=== PATIENT | female | born 1990 | race African-American/Black ===

== ENCOUNTER 2016-09-20 20:24 | Emergency (ER) | payer MEDICAID ==
[2016-09-20 20:25] VITALS: BMI 39.9
[2016-09-20 20:35] VITALS: PULSE 70; TEMP 97.8
[2016-09-20] MEDS ORDERED: SODIUM CHLORIDE 0.9% 10 ML FLUSH FLUSH PRN (20:55)
[2016-09-20] MEDS ORDERED: ACETAMINOPHEN 325 MG/TAB TABLET PO ONE (21:03)
--- NOTE | 2016-09-20 21:03 | EDPRACDOC ---
- General Information Chief Complaint: Abdominal Pain Stated Complaint: ABD PAIN(6 WKS PREG.) Time Seen by Provider: 09/20/16 20:55 Information Source: Patient Mode Of Arrival: Ambulance Home Medications: Home Medications Cyclobenzaprine HCl [Flexeril] 10 mg PO TID 05/31/16 Diazepam [Valium] 5 mg PO TID #15 tablet 05/31/16 Naproxen 500 mg PO .BID W/MEALS 05/31/16 Oxycodone Immediate Release [Oxycodone Immediate Release (OxyIR)] 5 mg PO Q6H PRN #20 tab 05/31/16 Prednisone [Deltasone, Orasone] 20 mg PO BID #20 tab 05/31/16 Cyclobenzaprine HCl [Flexeril] 10 mg PO TID #21 tab 07/18/16 Ketorolac Tromethamine [Toradol] 10 mg PO Q6H PRN #12 tab 07/18/16 Ondansetron HCl [Zofran] 4 mg PO Q8H PRN #15 tab 09/21/16 Allergies/Adverse Reactions: Allergies Allergy/AdvReac Type Severity Reaction Status Date / Time hydrocodone [Hydrocodone] Allergy Unknown Rash-Genera Verified 09/20/16 20:35 lized tramadol Allergy Unknown Rash-Genera Verified 09/20/16 20:35 lized - History of Present Illness Onset: 1200 HPI: Pt co diffuse abd pain since noon today. Denies fever, cough, congestion, n/v, changes in bowel or bladder, vaginal bleeding or discharge, rash. Pt states she is approximately 6 week preg and this feels similar to previous miscarriages. A3, unknown blood type, LMP 08/15/16 but was different than her normal. Pain Location: Reports: Diffuse Pain Context: Reports: Spontaneous Pain Severity: Moderate Pain Quality: Reports: Aching Pain Radiation: Reports: No Radiation Last Menstrual Period: 08/15/16 : Yes : 5 Para: 1 Abortus: 3 Blood Type: Unknown Adult Abdominal History: Denies: Urolithiasis, Bowel Obstruction Female Abdominal History: Denies: UTI, Ectopic, PID, Urolithiasis Modifying Factors: improves with: Nothing Female Associated Signs & Symptoms: Denies: Nausea, Frequency, Vaginal Bleeding , Vomiting, Hematemesis, Anorexia, Diarrhea, Melena, Dysuria, Fever, Urgency, Hematuria, Chills, Vaginal Discharge, Other Oral Intake: Normal Urinary Output: Normal - Treatment Prior to ED Arrival Reported Medications/Treatment EVENTS [facility]IST[facility] EMS Treatment BLS ED Past Medical History - History Reviewed Yes Nurses notes reviewed and agree except as marked - Patient Medical History Neurological History: Denies: Cerebrovascular Accident, Dementia Cardiac History: Denies: Atrial Fibrillation, Hypertension, Congestive Heart Failure, Heart Attack, Hypercholesterolemia Respiratory History: Denies: Asthma, COPD, Emphysema GI/ History: Denies: Urinary Tract Infection, Gastroesophageal Reflux Psychological History: Denies: Depression Systemic History: Denies: Cancer, Diabetes - Social Medical History Smoking Status: Heavy tobacco smoker (5 or more cigarettes/day or daily pipe/ cigar) Social History: Reports: Marijuana Use ETOH: None Substance Abuse: Illicit Drugs EDM Review of Systems - Review of Systems Constitutional: No Symptoms Reported. negative: Fever, Chills, Weakness, Fatigue, Loss of Appetite Ears: No Symptoms Reported. negative: Pain, Hearing Loss, Drainage, Ear Pulling Throat: No Symptoms Reported. negative: Pain, Swelling Nose: No Symptoms Reported. negative: Congestion, Bleeding, Discharge, Injection, Swelling, Deformity, Ecchymosis, Tender, Abrasion, Laceration Mouth: No Symptoms Reported. negative: Pain, Drooling Respiratory: No Symptoms Reported. negative: Cough, Brassy Cough, Barky Cough, Shortness of Breath, Wheezing, Hemoptysis Cardiovascular: No Symptoms Reported. negative: Chest Pain, Palpitations, Syncope, Edema, Orthopnea, PND, Skin Mottling, Cyanosis Gastrointestinal: Pain Genitourinary: Neurological: No Symptoms Reported. negative: Headache, Dizziness, Seizure, Numbness, Weakness, Speech Difficulty, Gait Difficulty Musculoskeletal: No Symptoms Reported. negative: Neck, Chestwall, Ribs, Back, Shoulder, Arm, Elbow, Forearm, Wrist, Hand, Pelvis, Hip, Femur, Knee, Leg, Ankle , Foot Integumentary: No Symptoms Reported. negative: Itching, Rash, Bruising, Wound Allergic/Immunologic: No Symptoms Reported. negative: Hives, Itching Hematologic: No Symptoms Reported. negative: Lymphadenopathy, Easy Bruising, Easy Bleeding Psychiatric: No Symptoms Reported. negative: Anxiety, Depression, Hallucinations, Insomnia, Suicidal - Physical Exam Constitutional: Alert Oriented to: Time, Person, Place Last recorded Vital Signs: Last Vital Signs Temp 97.8 F 09/20/16 20:31 Pulse 70 09/20/16 20:31 Resp 18 09/20/16 20:31 BP 129/82 09/20/16 20:31 Pulse Ox 99 09/20/16 20:31 Oxygen Pulse Oxygen Saturation 99 O2 Device Room Air Oxygen Flow Rate Fraction of Inspired Oxygen ( FIO2) - HEENT Head: Normal ( normocephalic) Eye Exam: Normal (PERRL, EOMI, Sclera white) Neck: Normal (FROM, trachea at midline) - Respiratory/Cardiovascular Respiratory: Normal - CTA (BBS clear to auscultation without adventitious sounds ) Cardiovascular: Normal (RRR without murmur, gallop or rub) - GI Auscultation: Normal (NABS) Palpation: Normal (Soft,No rebound or guarding, non distended) Tenderness: Diffuse, Mild - Bladder: Normal External: Normal Vagina: Discharge Cervix: Normal Adnexa: Left: Tender - Musculoskeletal Back: Normal (Non-Tender) Extremities: Normal (Normal tone, Pulses 2+ No cyanosis or edema, FROM) - Integumentary Skin: Normal, Warm, Dry Lymphatics: Normal (no adenopathy) - Neurologic Memory Impaired: Normal Motor Function: Normal (Normal tone, Pulses 2+ No cyanosis or edema, FROM) Mood Description: Normal Perception: Normal - Differential Diagnosis Gastroenteritis, UTI, Other (threatened AB) - Results 09/20/16 21:45 09/20/16 21:45 WBC 11.4 xk/uL (3.8-10.8) H 09/20/16 21:45 RBC 4.26 xM/uL (4.20-5.40) 09/20/16 21:45 Hgb 12.9 g/dL (12.0-16.0) 09/20/16 21:45 Hct 39.1 % (36-47) 09/20/16 21:45 MCV 92 fL (81-99) 09/20/16 21:45 MCH 30.4 pg (27-32) 09/20/16 21:45 MCHC 33.1 g/dl (33-36) 09/20/16 21:45 RDW 14.0 % (11.5-14.5) 09/20/16 21:45 Plt Count 253 xk/uL (130-400) 09/20/16 21:45 MPV 7.5 fL (7.4-10.4) 09/20/16 21:45 Neut % (Auto) 62.5 % (45-76) 09/20/16 21:45 Lymph % (Auto) 29.2 % (17-44) 09/20/16 21:45 [place] % (Auto) 5.6 % (3-10) 09/20/16 21:45 Eos % (Auto) 2.1 % (0-5) 09/20/16 21:45 Baso % (Auto) 0.6 % (0-2) 09/20/16 21:45 Absolute Neuts (auto) 7.07 xk/uL (1.7-8.2) 09/20/16 21:45 Absolute Lymphs (auto) 3.31 xk/uL (0.65-4.75) 09/20/16 21:45 Sodium 138 mEq/L (137-146) 09/20/16 21:45 Potassium 3.8 mEq/L (3.5-5.1) 09/20/16 21:45 Chloride 104 mEq/L (98-107) 09/20/16 21:45 Carbon Dioxide 27 mMOL/L (22-33) 09/20/16 21:45 Anion Gap 11 mEq/L (8-16) 09/20/16 21:45 BUN 8 MG/DL (7-17) 09/20/16 21:45 Creatinine 0.80 MG/DL (0.52-1.04) 09/20/16 21:45 Estimated GFR (MDRD) > 60 mL/min (>=60) 09/20/16 21:45 Glucose 93 MG/DL (70-99) 09/20/16 21:45 Calculated Osmolality 264 MOs/Kg (270-290) L 09/20/16 21:45 Calcium 9.1 MG/DL (8.4-10.2) 09/20/16 21:45 Total Bilirubin 0.4 MG/DL (0.2-1.3) 09/20/16 21:45 AST 18 IU/L (14-36) 09/20/16 21:45 ALT 31 IU/L (9-52) 09/20/16 21:45 Alkaline Phosphatase 56 IU/L (38-126) 09/20/16 21:45 Total Protein 7.0 G/DL (6.3-8.2) 09/20/16 21:45 Albumin 4.0 G/DL (3.5-5.0) 09/20/16 21:45 Beta HCG, Quant 47012.7 mIU/mL (<5) 09/20/16 21:45 Urine Color Pale yellow 09/20/16 21:00 Urine Clarity Cldy 09/20/16 21:00 Urine pH 6.0 (5.0-8.0) 09/20/16 21:00 Ur Specific [place] 1.010 (1.003-1.035) 09/20/16 21:00 Urine Protein Neg (NEG/TRACE) 09/20/16 21:00 Urine Glucose (UA) Neg (NEGATIVE) 09/20/16 21:00 Urine Ketones Neg (NEGATIVE) 09/20/16 21:00 Urine Occult Blood Neg (NEG/TRACE) 09/20/16 21:00 Urine Nitrite Neg (NEGATIVE) 09/20/16 21:00 Urine Bilirubin Neg (NEGATIVE) 09/20/16 21:00 Urine Urobilinogen <2.0 MG/DL (0-1) 09/20/16 21:00 Ur Leukocyte Esterase Neg (NEGATIVE) 09/20/16 21:00 Urine RBC 0-2 (0-5) 09/20/16 21:00 Ur Epithelial Cells 3+ 09/20/16 21:00 Amorphous Sediment Occ 09/20/16 21:00 Urine Bacteria Few (NEG/FEW) 09/20/16 21:00 Urine Mucus Occ (NEG/OCC) 09/20/16 21:00 Microbiology 09/20/16 21:19 ROSA Preparation - Final Vaginal 09/20/16 21:19 Trichomonas [place] - Final Vaginal Lab Results 09/20/16 09/20/16 09/20/16 21:45 21:45 21:00 WBC 11.4 H RBC 4.26 Hgb 12.9 Hct 39.1 MCV 92 MCH 30.4 MCHC 33.1 RDW 14.0 Plt Count 253 MPV 7.5 Neut % (Auto) 62.5 Lymph % (Auto) 29.2 [place] % (Auto) 5.6 Eos % (Auto) 2.1 Baso % (Auto) 0.6 Absolute Neuts (auto) 7.07 Absolute Lymphs (auto) 3.31 Sodium 138 Potassium 3.8 Chloride 104 Carbon Dioxide 27 Anion Gap 11 BUN 8 Creatinine 0.80 Estimated GFR (MDRD) > 60 Glucose 93 Calculated Osmolality 264 L Calcium 9.1 Total Bilirubin 0.4 AST 18 ALT 31 Alkaline Phosphatase 56 Total Protein 7.0 Albumin 4.0 Beta HCG, Quant 93874.7 Urine Color Pale yellow Urine Clarity Cldy Urine pH 6.0 Ur Specific [place] 1.010 Urine Protein Neg Urine Glucose (UA) Neg Urine Ketones Neg Urine Occult Blood Neg Urine Nitrite Neg Urine Bilirubin Neg Urine Urobilinogen <2.0 Ur Leukocyte Esterase Neg Urine RBC 0-2 Ur Epithelial Cells 3+ Amorphous Sediment Occ Urine Bacteria Few Urine Mucus Occ - Diagnostic Imaging Abdomen Image interpreted by: Radiologist 09/21/16 01:01 IMPRESSION: Single intrauterine gestational sac noted, with a mean sac diameter of 1.3 cm, corresponding to a gestational age of 6 weeks 1 day. This matches the gestational age of 5 weeks 1 day by LMP, reflecting an estimated date of delivery of May 22, 2017. A yolk sac is seen. The embryo is not yet seen at this time, within normal limits. Decision Time to Discharge: 01:01 - Departure Disposition: Home Condition: Good Final Diagnosis: Abdominal pain, IUP (intrauterine ), incidental Instructions: Acute Abdominal Pain (ED), (ED) Education/Counseling Given To: Patient Education/Counseling Given Regarding: Diagnosis, Treatment, Follow Up Referrals: None,No Provider [Primary Care Provider] - One Week Hansel Arevalo MD [Staff Physician] - One Week Prescriptions: Ondansetron HCl [Zofran] 4 mg PO Q8H PRN #15 tab PRN Reason: Nausea/Vomiting Additional Instructions: Tylenol every 4-6 hours as needed for pain. Return to the Emergency Department for increasing or different abdominal pain, vaginal bleeding that soaks two pads per hour for two hours, feeling like you might pass out, or any concerns.
[2016-09-20 21:27] LABS: AMORPHOUS OCC; LEUKOCYTES/URINE NEG (NEGATIVE); NITRITE/URINE NEG (NEGATIVE); RBC/URINE 0-2 (0-5); URINE OCCULT BLOOD NEG (NEG/TRACE)
[2016-09-20 22:07] LABS: AUTOMATED BASOPHIL 0.6 % (0-2); AUTOMATED EOSINOPHIL 2.1 % (0-5); AUTOMATED LYMPH 29.2 % (17-44); AUTOMATED MONOCYTE 5.6 % (3-10); AUTOMATED NEUTROPHIL 62.5 % (45-76); MPV 7.5 fL (7.4-10.4)
[2016-09-20 22:13] LABS: BLOOD UREA NITROGEN 8 MG/DL (7-17); CALCIUM 9.1 MG/DL (8.4-10.2); CALCULATED OSMOLALITY 264 MOs/Kg (270-290); CHLORIDE 104 mEq/L (98-107); GLUCOSE 93 MG/DL (70-99); SODIUM LEVEL 138 mEq/L (137-146)
[2016-09-20 22:29] LABS: QUANTITATIVE SERUM HCG 10807.7 mIU/mL (<5)
[2016-09-20] MEDS ORDERED: ONDANSETRON HCL 4 MG ODT TAB PO ONE (23:07)
--- NOTE | 2016-09-21 01:00 | DIRPT ---
CLINICAL DATA: Acute onset of left adnexal pain. Initial encounter. EXAM: OBSTETRIC <14 WK US AND TRANSVAGINAL OB US TECHNIQUE: Both transabdominal and transvaginal ultrasound examinations were performed for complete evaluation of the gestation as well as the maternal uterus, adnexal regions, and pelvic cul-de-sac. Transvaginal technique was performed to assess early . COMPARISON: None. FINDINGS: Intrauterine gestational sac: Visualized/normal in shape. Yolk sac: Yes Embryo: No Cardiac Activity: N/A MSD: 1.3 cm 6 w 1 d Subchorionic hemorrhage: No subchorionic hemorrhage is noted. Maternal uterus/adnexae: The uterus is unremarkable in appearance. The right ovary measures 3.4 x 2.5 x 2.4 cm, while the left ovary measures 2.2 x 1.7 x 1.7 cm. A small anechoic 1.5 cm focus adjacent to the right ovary likely reflects an exophytic follicle. No suspicious adnexal masses are seen. There is no evidence for ovarian torsion No free fluid is seen within the pelvic cul-de-sac. IMPRESSION: Single intrauterine gestational sac noted, with a mean sac diameter of 1.3 cm, corresponding to a gestational age of 6 weeks 1 day. This matches the gestational age of 5 weeks 1 day by LMP, reflecting an estimated date of delivery of May 22, 2017. A yolk sac is seen. The embryo is not yet seen at this time, within normal limits. Electronically Signed By: Randy Burkett M.D. On: 09/21/2016 00:57
[2016-09-21 01:24] VITALS: BP 124/76
[2016-09-23 18:36] LABS: CHLAMY BY NUCLEIC ACID AMP Negative (Negative)
[2016-09-24 06:38] LABS: GC BY NUCLEIC ACID AMP Negative (Negative)
== END 2016-09-21 01:15 | disposition home or self-care (01) ==
LOC: ED 20:24
DX: O26.899 Other specified pregnancy related conditions, unspecified trimester (principal); R10.9 Unspecified abdominal pain; Z3A.00 Weeks of gestation of pregnancy not specified
CPT/HCPCS: 36415; 76801; 76817; 80053; 81001; 84702; 85025; 87210; 87220; 87491; 87591; 99284; J3490

== ENCOUNTER 2016-10-03 08:44 | Emergency (ER) | payer MEDICAID ==
[2016-10-03 08:55] VITALS: TEMP 98.5; BMI 24.0
[2016-10-03] MEDS ORDERED: ACETAMINOPHEN 325 MG/TAB TABLET PO ONE (09:30)
--- NOTE | 2016-10-03 09:30 | EDPRACDOC ---
- General Information Chief Complaint: Abdominal Pain Stated Complaint: RT ABD PAIN Time Seen by Provider: 10/03/16 08:56 Information Source: Patient Mode Of Arrival: Car Home Medications: Home Medications Vits W-Ca,Fe,FA(<1Mg) [] 1 each PO DAILY #30 tablet 10/03/16 Allergies/Adverse Reactions: Allergies Allergy/AdvReac Type Severity Reaction Status Date / Time hydrocodone [Hydrocodone] Allergy Unknown Rash-Genera Verified 10/03/16 08:54 lized tramadol Allergy Unknown Rash-Genera Verified 10/03/16 08:54 lized - History of Present Illness Onset: 3 WEEKS HPI: PT PRESENTS TODAY WITH RLQ PAIN THAT IS THE SAME SINCE 3 WEEKS AGO WHEN SHE WAS DX WITH OVARIAN CYST, PER PT. PT IS ABOUT 9 WEEKS , . NO NEW SYMPTOMS. PT STATES THAT SHE WAS TOLD IF HER PAIN DID NOT RESOLVE AFTER 1 WEEK TO RETURN TO ED. STATES N/V, BUT ATTRIBUTES THIS TO "MORNING SICKNESS". DENIES FEVER, CP, SHOB, ABD PAIN, VAGINAL BLEEDING/DISCHARGE, DYSURIA. NO APPARENT DISTRESS. Pain Location: Reports: RLQ Pain Context: Reports: Spontaneous Pain Severity: Moderate Pain Quality: Reports: Sharp, Stabbing Pain Radiation: Reports: No Radiation Last Menstrual Period: AUG 07 : Yes Abortus: 3 Blood Type: Unknown Adult Abdominal History: Denies: Urolithiasis, Bowel Obstruction Female Abdominal History: Reports: Similar Pain (dx). Denies: UTI, Ectopic, PID , Urolithiasis Modifying Factors: improves with: Nothing Female Associated Signs & Symptoms: Reports: Nausea, Vomiting Oral Intake: Normal Urinary Output: Normal ED Past Medical History - History Reviewed Yes Nurses notes reviewed and agree except as marked - Patient Medical History Neurological History: Denies: Cerebrovascular Accident, Dementia Cardiac History: Denies: Atrial Fibrillation, Hypertension, Congestive Heart Failure, Heart Attack, Hypercholesterolemia Respiratory History: Denies: Asthma, COPD, Emphysema GI/ History: Denies: Urinary Tract Infection, Gastroesophageal Reflux Psychological History: Denies: Depression Systemic History: Denies: Cancer, Diabetes Surgical History: Denies: Hysterectomy - Social Medical History Smoking Status: Heavy tobacco smoker (5 or more cigarettes/day or daily pipe/ cigar) Social History: Reports: Marijuana Use EDM Review of Systems - Review of Systems ROS Negative Except as Marked: Yes All systems reviewed and were negative except as marked Constitutional: No Symptoms Reported Respiratory: No Symptoms Reported Cardiovascular: No Symptoms Reported Gastrointestinal: Nausea, Pain, Vomiting Genitourinary: Neurological: No Symptoms Reported Musculoskeletal: No Symptoms Reported Integumentary: No Symptoms Reported - Physical Exam Constitutional: Alert (Awake), No apparent distress Oriented to: Time, Person, Place Last recorded Vital Signs: Last Vital Signs Temp 98.5 F 10/03/16 08:51 Pulse 58 L 10/03/16 10:30 Resp 16 10/03/16 10:30 BP 113/62 10/03/16 10:30 Pulse Ox 97 10/03/16 10:30 Oxygen Pulse Oxygen Saturation 97 O2 Device Room Air Oxygen Flow Rate Fraction of Inspired Oxygen ( FIO2) - HEENT Head: Normal Eye Exam: Normal Neck: Normal, Denies Pain, Midline - Respiratory/Cardiovascular Respiratory: Normal - CTA Cardiovascular: Normal - GI Auscultation: Normal Palpation: Normal Tenderness: Moderate, RLQ - Musculoskeletal Back: Normal Extremities: Normal - Integumentary Skin: Normal Lymphatics: Normal - Neurologic Cerebellar: Normal Mood Description: Normal Thought: Coherent Perception: Normal - Results Beta HCG, Quant 086323.0 mIU/mL (<5) 10/03/16 09:14 Lab Results 10/03/16 09:14 Beta HCG, Quant 233849.0 Decision Time to Discharge: 10:47 - Departure Disposition: Home Condition: Good Final Diagnosis: Abdominal pain, IUP (intrauterine ), incidental Instructions: Acute Abdominal Pain (ED) Education/Counseling Given To: Patient Education/Counseling Given Regarding: Diagnosis, Treatment, Follow Up Referrals: None,No Provider [Primary Care Provider] - One Week Lelia Ramirez DO [Staff Physician] - One Week Prescriptions: Vits W-Ca,Fe,FA(<1Mg) [] 1 each PO DAILY #30 tablet Additional Instructions: TYLENOL FOR PAIN. FOLLOW UP WITH [facility].
[2016-10-03 10:31] VITALS: BP 113/62; PULSE 58
--- NOTE | 2016-10-03 10:46 | DIRPT ---
CLINICAL DATA: Three-week history of right lower quadrant/pelvic pain EXAM: OBSTETRIC <14 WK US AND TRANSVAGINAL OB US TECHNIQUE: Both transabdominal and transvaginal ultrasound examinations were performed for complete evaluation of the gestation as well as the maternal uterus, adnexal regions, and pelvic cul-de-sac. Transvaginal technique was performed to assess early . COMPARISON: September 20, 2016 FINDINGS: Intrauterine gestational sac: Visualized/normal in shape. Yolk sac: Visualized Embryo: Visualized Cardiac Activity: Visualized Heart Rate: 141 bpm CRL: 11 mm 7 w 2 d US EDC: May 20, 2017 Subchorionic hemorrhage: None visualized. Maternal uterus/adnexae: Cervical os is closed. There is a corpus luteum arising from the right ovary measuring 1.4 x 1.2 x 1.1 cm. There are no other extrauterine pelvic or adnexal mass. No free pelvic fluid. IMPRESSION: Single live intrauterine gestation with estimated gestational age of 7+ weeks. No demonstrable subchorionic hemorrhage. No pelvic mass lesions beyond dominant physiologic corpus luteum right ovary. Electronically Signed By: Virgilio Virgen III, M.D. On: 10/03/2016 10:43
== END 2016-10-03 10:53 | disposition home or self-care (01) ==
LOC: ED 08:44
DX: O26.899 Other specified pregnancy related conditions, unspecified trimester (principal); Z3A.00 Weeks of gestation of pregnancy not specified; R10.9 Unspecified abdominal pain
CPT/HCPCS: 36415; 76801; 76817; 84702; 99283; J3490